=== PATIENT | female | born 1955 | race Caucasian/White ===

== ENCOUNTER → 2016-12-21 | Outpatient (CLI) | payer BC, OTHER | END | disposition home or self-care (01) | LOC: PCVCIMAG 10:36 | PROVIDERS: ATTEND Internal Medicine Cardiovascular Disease | DX: I10 Essential (primary) hypertension (principal); R06.00 Dyspnea, unspecified; E78.00 Pure hypercholesterolemia, unspecified; E11.9 Type 2 diabetes mellitus without complications; Z72.0 Tobacco use | CPT/HCPCS: 93325; 93351; G0463 ==

== ENCOUNTER → 2018-03-15 | Outpatient (CLI) | payer OTHER | END | disposition home or self-care (01) | LOC: PCVCIMAG 10:52 | DX: I10 Essential (primary) hypertension (principal); E78.5 Hyperlipidemia, unspecified; E78.00 Pure hypercholesterolemia, unspecified; R06.00 Dyspnea, unspecified; E04.9 Nontoxic goiter, unspecified; F17.210 Nicotine dependence, cigarettes, uncomplicated; Z79.899 Other long term (current) drug therapy | CPT/HCPCS: 76536; 93005; 93306; G0463 ==

== ENCOUNTER → 2019-03-20 | Outpatient (CLI) | payer OTHER ==
--- NOTE | 2019-03-20 10:49 | PCVCIMAG ---
EXAM: ULTRASOUND OF THE THYROID INDICATION: Thyroid nodules. FINDINGS: The right thyroid lobe measures 1.8 x 2.3 x 5.1 cm. The left thyroid lobe measures 1.4 x 1.7 x 4.5 cm. There is a 0.7 x 1.3 x 1.5 cm solid nodule superior right thyroid lobe which on [id number] comparison is similar to March 2018 study. There is a 0.7 x 1.0 x 1.2 cm solid nodule in the posterior superior right thyroid lobe also unchanged on [id number] comparison to prior study. There is a 1.2 x 1.5 x 2.3 cm solid nodule in the inferior right thyroid lobe posteriorly which is unchanged since prior study. There are 3 small hypoechoic/cystic areas in the mid/lower left thyroid lobe which are unchanged. IMPRESSION: Multinodular thyroid goiter as detailed above. The most dominant nodule measures up to 2.3 cm in the inferior right thyroid lobe. All the nodules have shown minimal change since 2018 study. Further evaluation by ENT could be done if needed. LOC:[id number]
--- NOTE | 2019-03-20 12:57 | PCVCIMAG ---
APPROVED REPORT Study performed: 03/20/2019 10:16:37 EXAM: Comprehensive 2D, Doppler, and color-flow Echocardiogram Patient Location: Echo lab Status: routine BSA: 1.63 HR: 67 bpmBP: 130/80 mmHg Rhythm: NSR Other Information Study Quality: Adequate Risk Factors: Cardiac Risk Factors: HTN, Hyperlipidemia, Smoking Indications Hypertension/HDD TIA 2D Dimensions IVSd: 12.33 (7-11mm)LVOT Diam: 22.16 (18-24mm) LVDd: 39.14 mm PWd: 11.40 (7-11mm)Ascending Ao: 29.68 (22-36mm) LVDs: 24.28 (25-40mm) Left Atrium: 40.24 (27-40mm) Aortic Root: 28.38 mm LV Single Plane 4CH: 68.64 % LV Single Plane 2CH: 71.18 % Biplane EF: 69.5 % Volumes Left Atrial Volume (Systole) Single Plane 4CH: 34.00 mLSingle Plane 2CH: 51.86 mL LA ESV Index: 26.00 mL/m2 Aortic Valve AoV Peak Arnold.: 1.54 m/s AO Peak Gr.: 9.74 mmHgLVOT Max P.28 mmHg LVOT Max V: 1.03 m/s MILTON Vmax: 2.59 cm2 Mitral Valve E/A Ratio: 0.8 MV Decel. Time: 364.34 ms MV E Max Arnold.: 0.83 m/s MV A Arnold.: 1.05 m/s TDI E/Lateral E': 10.38E/Medial E': 10.38 Medial E' Arnold.: 0.08 m/s Lateral E' Arnold.: 0.08 m/s Pulmonary Vein P Vein S: 0.50 m/sP Vein A: 0.60 m/s P Vein D: 0.33 m/sP Vein A Dur.: 86.5 msec P Vein S/D Ratio: 1.52 Left Ventricle The left ventricle is normal size. There is normal LV segmental wall motion. Mild concentric left ventricular hypertrophy. Left ventricular systolic function is normal. The left ventricular ejection fraction is within the normal range. LVEF is 65%. Grade I - abnormal relaxation pattern. Right Ventricle The right ventricle is normal size. The right ventricular systolic function is normal. Atria The left atrium size is normal. The right atrium size is normal. Aortic Valve The aortic valve is normal in structure. No aortic regurgitation is present. There is no aortic valvular stenosis. Mitral Valve The mitral valve is normal in structure. There is no mitral valve regurgitation noted. No evidence of mitral valve stenosis. Tricuspid Valve The tricuspid valve is normal in structure. There is no tricuspid valve regurgitation noted. Pulmonic Valve The pulmonary valve is normal in structure. There is no pulmonic valvular regurgitation. Great Vessels The aortic root is normal in size. IVC is normal in size and collapses >50% with inspiration. Pericardium There is no pericardial effusion. <Conclusion> The left ventricle is normal size. Mild concentric left ventricular hypertrophy. Left ventricular systolic function is normal. Grade I - abnormal relaxation pattern. The right ventricle is normal size. The left atrium size is normal. The aortic valve is normal in structure. There is no mitral valve regurgitation noted. There is no tricuspid valve regurgitation noted.
== END | disposition home or self-care (01) ==
LOC: PCVCIMAG 09:30
PROVIDERS: ATTEND Internal Medicine Cardiovascular Disease
DX: E04.2 Nontoxic multinodular goiter (principal); G45.9 Transient cerebral ischemic attack, unspecified; I11.9 Hypertensive heart disease without heart failure
CPT/HCPCS: 76536; 93306